=== PATIENT | male | born 1960 | race American Indian/Alaskan Native ===

== ENCOUNTER 2017-06-06 15:12 | Emergency (ER) | payer OTHER ==
[2017-06-06 16:38] LABS: Basophils % (Auto) 0.6 % (0.0-1.8); Eosinophils % (Auto) 2.3 % (0.0-4.3); Hematocrit 36.3 % (35.5-45.6); Hemoglobin 11.3 gm/dl (11.8-15.2); Mean Corpuscular HGB Conc 31 % (32-34); Mean Corpuscular Volume 72 fl (84-94); Platelet Count 177 K/mm3 (140-440); Red Blood Count 5.05 M/mm3 (3.65-5.03); Red Cell Distribution Width 19.8 % (13.2-15.2); White Blood Count 4.1 K/mm3 (4.5-11.0)
[2017-06-06 16:41] LABS: Mean Corpuscular Hemoglobin 23 pg (28-32)
[2017-06-06 16:49] LABS: Anion Gap 18 mmol/L; BUN/Creatinine Ratio 11.81; Blood Urea Nitrogen 13 mg/dL (9-20); Calcium 9.5 mg/dL (8.4-10.2); Carbon Dioxide 23 mmol/L (22-30); Chloride 101.9 mmol/L (98-107); Glucose 97 mg/dL (75-100); Potassium 4.2 mmol/L (3.6-5.0); Sodium 139 mmol/L (137-145)
--- NOTE | 2017-06-06 17:08 | Cat Scan Report ---
FINAL REPORT EXAM: CT HEAD/BRAIN WO CON HISTORY: syncope/wrecked forklift TECHNIQUE: CT of the Head without IV contrast. PRIORS: None currently available. FINDINGS: There is no evidence for acute ischemia. There is no hemorrhage. There is no midline shift. There is no hydrocephalus. There is no mass. Age appropriate sidhu-white matter attenuation is noted. There is no calvarial fracture. The temporal bones demonstrate aerated mastoid air cells. The middle ears appear unremarkable. Paranasal sinuses are unremarkable. Globes are intact. IMPRESSION: No acute intracranial findings.
[2017-06-06 17:20] LABS: Bacteria,Urine 1+ /HPF (Negative); Bilirubin,Urine NEG (Negative); Blood,Urine NEG (Negative); Ketones,Urine NEG (Negative); Leukocyte Esterase,Urine SM (Negative); Mucus,Urine FEW /HPF; Nitrite,Urine NEG (Negative); Protein,Urine <15 mg/dL mg/dL (Negative); Urobilinogen,Urine < 2.0 mg/dL (<2.0)
[2017-06-06] MEDS ORDERED: NACL 0.9% 1000 ML 1,000 ML IV ONE (21:34)
[2017-06-06] MEDS ORDERED: REGLAN IV ONE (21:34)
[2017-06-06] MEDS ORDERED: BENADRYL IV ONE (21:34)
--- NOTE | 2017-06-06 21:51 | Emergency Department Report ---
ED Syncope HPI - General Chief Complaint: Syncope Stated Complaint: PASSED OUT 2X/NAUSEA/HEADACHE Time Seen by Provider: 06/06/17 21:24 Source: patient, family Exam Limitations: no limitations - History of Present Illness Initial Comments: 56-year-old male presents to the emergency Department with family complaining of headache and syncope. Patient states that he awoke this morning with a headache. He describes a squeezing pain on both temples. Pain has been constant since onset. He states the pain is slightly better at this time. He reports associated photophobia and nausea. 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 He states he saw some flashes of light and the next thing he remembers his forklift head hit a wall. He reports that he was told he threw his hat and glasses off prior to hitting the wall. He does not remember this. Family states that coworkers told him that the patient was initially confused after this incident. He was attempting to walk around when he had a second syncopal episode. EMS was called to the scene , but the patient refused transport. Patient was brought to the emergency department by family. There are no other complaints. Timing/Prior Episodes: multiple episodes today Precipitating Factors: Positive: lightheadedness Context: sitting Loss of Consciousness: brief (seconds) Current Symptoms: headache, nausea, other (photophobia) - Related Data Allergies/Adverse Reactions: Allergies Sulfa (Sulfonamide Antibiotics) Allergy (Verified 06/06/17 15:56) Rash Home Medications: Ambulatory Orders HYDROcodone/APAP 5-325 [[place] 5/325] 1 each PO Q6HR PRN #20 tablet 06/06/17 ED Review of Systems ROS: Stated complaint: PASSED OUT 2X/NAUSEA/HEADACHE Other details as noted in HPI Comment: All other systems reviewed and negative Eyes: other (photophobia) Cardiovascular: syncope Gastrointestinal: nausea Neurological: headache ED Past Medical Hx - Past Medical History Previous Medical History?: Yes Hx Diabetes: Yes Hx Liver Disease: Yes (fatty liver) Hx Arthritis: Yes - Surgical History Past Surgical History?: Yes Hx Appendectomy: Yes Additional Surgical History: cyst on groin removed - Family History Family history: no significant - Social History Smoking Status: Former Smoker Substance Use Type: Alcohol, Prescribed - Medications Home Medications: Home Medications Medication Instructions Recorded Confirmed Last Taken Type HYDROcodone/APAP 5-325 [[place] 1 each PO Q6HR PRN #20 tablet 06/06/17 Unknown Rx 5/325] ED Physical Exam - General Limitations: No Limitations General appearance: alert, in no apparent distress - Head Head exam: Present: atraumatic, normocephalic - Eye Eye exam: Present: normal appearance, PERRL, EOMI - ENT ENT exam: Present: normal exam, normal orophraynx, mucous membranes moist - Neck Neck exam: Present: normal inspection, full ROM. Absent: tenderness - Respiratory Respiratory exam: Present: normal lung sounds bilaterally. Absent: respiratory distress - Cardiovascular Cardiovascular Exam: Present: regular rate, normal rhythm, normal heart sounds - GI/Abdominal GI/Abdominal exam: Present: soft, normal bowel sounds. Absent: distended, tenderness - Extremities Exam Extremities exam: Present: normal inspection, full ROM. Absent: tenderness - Back Exam Back exam: Present: normal inspection, full ROM. Absent: tenderness - Neurological Exam Neurological exam: Present: alert, oriented X3. Absent: motor sensory deficit - Skin Skin exam: Present: warm, dry, intact ED Course Vital Signs 06/06/17 06/06/17 15:56 21:34 Temperature 98.2 F Pulse Rate 66 60 Respiratory 18 Rate Blood Pressure 119/88 O2 Sat by Pulse 98 Oximetry ED Medical Decision Making - Lab Data Result diagrams: 06/06/17 16:07 06/06/17 16:07 - EKG Data -: EKG Interpreted by Nv EKG shows normal: sinus rhythm, axis, intervals, QRS complexes, ST-T waves Rate: normal - EKG Data When compared to previous EKG there are: previous EKG unavailable Interpretation: normal EKG - Radiology Data Radiology results: report reviewed CT of the head shows no acute intracranial abnormality. - Medical Decision Making Lab and imaging results reviewed and discussed with the patient and the family. Patient reports feeling better with medication. Patient will be discharged home at this time. - Differential Diagnosis complex migraine, tension headache, new-onset seizure, syncope Critical care attestation.: If time is entered above; I have spent that time in minutes in the direct care of this critically ill patient, excluding procedure time. ED Disposition Clinical Impression: Migraine Qualifiers: Migraine type: periodic headache syndrome Intractability: not intractable Qualified Code(s): G43.C0 - Periodic headache syndromes in child or adult, not intractable Disposition: - TO HOME OR SELFCARE Is pt being admited?: No Condition: Stable Instructions: Acute Headache (ED) Prescriptions: HYDROcodone/APAP 5-325 [[place] 5/325] 1 each PO Q6HR PRN #20 tablet PRN Reason: Pain Referrals: PRIMARY CARE, [Primary Care Provider] - 3-5 Days Time of Disposition: 23:43
[2017-06-06] MEDS ORDERED: NORCO 5/325 ONE (22:55)
[2017-06-06] MEDS ORDERED: NORCO 5/325 PO ONE (22:56)
[2017-06-07 00:10] VITALS: BP 109/71
== END 2017-06-07 00:10 | disposition home or self-care (01) ==
LOC: ED 15:12
DX: G43.C0 Periodic headache syndromes in child or adult, not intractable (principal); E11.9 Type 2 diabetes mellitus without complications; Z87.891 Personal history of nicotine dependence
CPT/HCPCS: 36415; 70450; 80048; 81001; 82962; 85025; 93005; 93010; 96361; 96374; 96375; 99284; J1200; J2765; J7030